=== PATIENT | female | born 1990 | race African-American/Black ===

== ENCOUNTER 2019-02-04 13:10 | Outpatient (CLI) | payer MEDICAID, SELFPAY ==
[2019-02-04 13:19] VITALS: BMI 23.3
[2019-02-04 13:49] LABS: ROM Internal Control Test YES-OK TO RESULT pt. (Internal QC)
[2019-02-04 13:51] LABS: ROM Patient Test POSITIVE (Negative)
[2019-02-04] MEDS: Lactated Ringers 500 ML 999 ML IV (14:00)
[2019-02-04] MEDS: Magnesium Sulfate 4gm/100mL 4 GM/100 ML IV.SOLN. IV ×2 (14:11→14:30)
[2019-02-04] MEDS: Betamethasone/Betamethasone 30 MG/5 ML Vial 12 MG IM (14:19)
[2019-02-04 14:30] VITALS: BP 117/68; PULSE 95; RESP 15; O2SAT 98
--- NOTE | 2019-02-04 14:33 | OB.TRI.HP_ITS ---
History of Present Illness Date of Service: 02/04/19 Was patient seen by the physician?: Yes Reason For Visit: R/O RUPTURED MEMBRANE Date of Service: 02/04/19 Final CORINA: 04/16/19 Final CORINA Source: US >20 weeks Gestational age: 29 Weeks and 6 Days History of Present Illness: 28yo @ 29.6 wks di/di twins with SROM, clear fluid. pt reports occasional contractions. Good Fm. no vaginal bleeding. 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 FLAKEBOARD: Normal external genitalia Estimated gestational size: Appropriate for gestational size Presentation: Cephalic Cervix Dilation (cm): 4 Station: -1 Effacement (%): 90 NST - FHR Rate Baby A Baseline: 120 Variability:: Moderate Accelerations:: 15 x 15 Decelerations:: None NST Reactive:: Yes FHR Category:: Category I Uterine Activity:: irregular - FHR Rate Baby B Baseline: 130 Variability:: Moderate Accelerations:: 15 x 15 Decelerations:: None NST Reactive:: Yes FHR Category:: Category I Uterine Activity:: irregular Impression/Plan 28yo @ 29.6 wks, Di/Di twins- SROM 1) Magnesium sulfate started 6gm loading then 2gm/hr 2) 12mg Celestone 3) spoke to L&D Dmitriy briggs and Barrett Joy- Transport patient 4) Bedside ultrasound- Baby A vertex 5) Pt counseled on transport- stable not in active labor at this time.
[2019-02-04 14:38] VITALS: BP 124/77; PULSE 98; RESP 15; O2SAT 97
[2019-02-04] MEDS: Magnesium Sulfate 20 GM/500 ML BAG IV (14:38)
[2019-02-04 14:53] VITALS: BP 117/78; PULSE 87; RESP 16; O2SAT 99
--- NOTE | 2019-02-04 15:00 | NURSING ---
see qs for all vital signs; not all were manually transfered into [facility]
== END 2019-02-04 15:10 | disposition short-term general hospital (02) ==
LOC: WPOUT 13:18 → WP 13:18
PROVIDERS: Referring Provider Advanced Practice Midwife; Visit Provider Advanced Practice Midwife
DX: O42.913 Preterm premature rupture of membranes, unspecified as to length of time between rupture and onset of labor, third trimester (principal); O30.043 Twin pregnancy, dichorionic/diamniotic, third trimester; Z3A.29 29 weeks gestation of pregnancy
CPT/HCPCS: 96365; 96368; 59025; 59050; 76815; 84112; 96372; 99218; J7120; G0378; J0702

== ENCOUNTER 2022-07-21 20:48 | Emergency (ER) | payer MEDICAID, SELFPAY ==
[2022-07-21 20:49] VITALS: BP 121/93; PULSE 97; RESP 15; TEMP 36.8; O2SAT 99; BMI 28.6
--- NOTE | 2022-07-21 21:08 | ED.VIS.DENTA ---
HPI History of Present Illness Chief Complaint: Dental Detail of Chief Complaint: Dental pain Informant: patient Narrative Narrative: Patient presents with dental pain that she has had for several days. This morning she noticed increased swelling to left upper molar area. Patient states that she called and made a dental appointment. She had fever up to 101 off-and-on for the last several days. Patient states that she has a broken and carried left upper molar. PFSH PFSH Home Medications vit no.95-ferrous fumarate 28 mg-folic acid 800 mcg tablet () 1 ea PO 04/12/16 [History Last Taken 04/11/16 20:00] docusate sodium 100 mg capsule 100 mg PO DAILY 02/04/19 [History Last Taken 02/03/19 11:00] famotidine 20 mg tablet 20 mg PO BID 02/04/19 [History Last Taken 02/03/19 22:00] ferrous sulfate 325 mg (65 mg iron) tablet 325 mg PO BID 02/04/19 [History Last Taken 02/03/19 21:00] vits,calcium no.78-iron fumarate-folic acid 29 mg-1 mg tablet 1 tab PO DAILY 02/04/19 [History Last Taken 02/03/19 11:00] clindamycin HCl 300 mg capsule (Cleocin HCl) 300 mg PO Q6H #40 CAPSULES 07/21/22 [Rx Last Taken Unknown] clindamycin HCl 300 mg capsule (Cleocin HCl) 300 mg PO Q6H #40 CAPSULES 07/21/22 [Rx Last Taken Unknown] hydrocodone-acetaminophen 5-325mg 5mg-325mg 1 tab PO Q4H PRN PRN Pain 2 days #10 TABLETS 07/21/22 [Rx Last Taken Unknown] hydrocodone-acetaminophen 5-325mg 5mg-325mg 1 tab PO Q4H PRN PRN Pain 2 days #10 TABLETS 07/21/22 [Rx Last Taken Unknown] Allergy/AdvReac Type Severity Reaction Status Date / Time codeine Allergy Rash Verified 07/21/22 20:52 latex Allergy Swelling Verified 07/21/22 20:52 Penicillins Allergy Unknown Verified 07/21/22 20:52 Social History Smoking Status: Current every day smoker ROS ROS ED Review of Systems ROS Unobtainable: other Constitutional Constitutional ED: Reports lethargy; Denies chills, fever(s), sweats or weight loss Eyes Eyes: Denies blurry vision, change in vision or diplopia ENT ENT ED: Reports other Details: Dental pain and swelling ; Denies rhinorrhea or sore throat Cardiovascular Cardiovascular: Denies chest pain, orthopnea or racing heartbeat Respiratory/Chest Respiratory/Chest: Denies cough, dyspnea, dyspnea on exertion, orthopnea or sputum Gastrointestinal Gastrointestinal: Denies abdominal pain, diarrhea, nausea or vomiting Genitourinary Genitourinary ED: Denies dysuria, hematuria or urinary frequency Musculoskeletal Musculoskeletal: Denies arthralgias, back pain, myalgias or neck pain Integumentary Denies abscess, Abrasions or rash Neurologic Neurologic: Denies headache(s) or weakness Psychiatric Psychiatric: Denies anxiety, depression or suicidal thoughts Endocrine Endocrinology: Denies polydipsia, polyphagia or polyuria Hematologic/Lymphatic Hematologic/Lymphatic: Denies easy bleeding, easy bruising or lymphadenopathy Allergic/Immunologic Allergic/Immunologic ED: Denies mouth swelling, tongue swelling or urticaria EXAM Physical Exam Const Vital Signs: 07/21/22 20:49 Temperature 98.2 F Temperature Source Temporal Pulse Rate 97 Respiratory Rate 15 Blood Pressure 121/93 H Blood Pressure Mean 102 Pulse Ox 99 Oxygen Delivery Method Room Air Positive well nourished and well developed General Appearance ED: well developed and NAD HEENT Reports TM's clear and moist mucous membranes HEENT Narrative: Dentition-patient has a broken and carried tooth #15. Gingiva distal to it is erythematous and has a soft tissue fleshy mass is pointing and fluctuant consistent with an abscess. There is no facial erythema or cellulitis. There is no trismus on exam. normocephalic and atraumatic; Negative for trauma or tenderness Tympanic Membrane ED: Yes TM's clear Eyes PERRL and EOMs intact bilaterally General Eye ED: Negative for pale conjunctiva or scleral icterus Neck no lymphadenopathy, supple and no JVD General: Negative for tenderness Chest Wall inspection of chest normal and palpation of chest normal Chest: Negative for tenderness Resp normal respiratory effort and clear to auscultation bilaterally Effort and Inspection: Negative for respiratory distress or pain with movement Auscultation: Negative for rhonchi, wheezes or diminished lung sounds Cardio regular rate, regular rhythm, S1 normal heart sound, S2 normal heart sound and no murmurs Peripheral Pulses: pulses 2+ throughout GI normal to inspection, nondistended, normoactive bowel sounds, soft to palpation, non-tender, non-distended and no masses Back/Spine no CVA tenderness and no thoracic nor lumbar tenderness Extremity normal to inspection General Extremety ED: Negative for edema General Extremity: Negative for edema Neuro oriented x3, CN's II-XII intact bilaterally, no sensory deficits noted and gait normal Sensorium / Orientation: awake, alert, oriented to person, oriented to place and oriented to time Motor Exam: strength 5/5 throughout and strength abnormal Psych mental status grossly normal Skin no rashes or lesions noted and no wounds MDM MDM MDM Narrative Medical decision making narrative: Patient presents with dental pain and a dental abscess. I recommended incision and drainage of said abscess. Patient in agreement. Used a 18-gauge needle to incise and drain the abscess. Large amount of free-flowing purulent debris was expressed from the abscess. Patient was able to rinse and spit the debris from her mouth. Patient will be started on clindamycin and given first dose in the emergency department as she has a penicillin allergy. Patient will be given a prescription for dennys [place] for pain. She is advised to follow-up with her dentist at the earliest possible time. Discharge Plan Triage Chief Complaint: Dental ED Provider: Basia Nunez Dx/Rx/DC Orders Clinical Impression: Dental abscess Instructions: ED Dental Abscess Prescriptions: New clindamycin HCl [Cleocin HCl] 300 mg capsule 300 mg PO Q6H Qty: 40 0RF hydrocodone-acetaminophen [hydrocodone-acetaminophen] 5-325 mg tablet 1 tab PO Q4H PRN PRN (Reason: Pain) 2 Days Qty: 10 0RF clindamycin HCl [Cleocin HCl] 300 mg capsule 300 mg PO Q6H Qty: 40 0RF hydrocodone-acetaminophen [hydrocodone-acetaminophen] 5-325 mg tablet 1 tab PO Q4H PRN PRN (Reason: Pain) 2 Days Qty: 10 0RF No Action PNV cmb#95-ferrous fumarate-FA [] 1 EACH tablet 1 ea PO famotidine 20 MG tablet 20 mg PO BID ferrous sulfate 325 MG tablet 325 mg PO BID docusate sodium 100 MG capsule 100 mg PO DAILY vit,[id number] 1 TABLET tablet 1 tab PO DAILY Primary Care Provider: Care Physician,No Primary Referrals: Care Physician,No Primary [Primary Care Provider] - Activity Restrictions/Additional Instructions: See your dentist at earliest possible time. Disposition Disposition: Home, Self Care
[2022-07-21] MEDS: Clindamycin HCl 150 MG Capsule 300 MG PO (21:18)
== END 2022-07-21 21:39 | disposition home or self-care (01) ==
PROVIDERS: Emergency Provider Emergency Medicine; Visit Provider Emergency Medicine
DX: K04.7 Periapical abscess without sinus (principal); R50.9 Fever, unspecified; F17.200 Nicotine dependence, unspecified, uncomplicated
CPT/HCPCS: 41800; 99282

== ENCOUNTER 2022-08-25 15:18 | Emergency (ER) | payer MEDICAID, SELFPAY ==
[2022-08-25 15:19] VITALS: BP 120/86; PULSE 93; RESP 16; TEMP 37; O2SAT 98; BMI 28.5
--- NOTE | 2022-08-25 15:34 | EDS_ITS ---
HPI History of Present Illness Chief Complaint: Other, Pain/Inj Narrative Narrative: 32-year-old female with nasal bone swelling. She states that her child hit her in the nose with the head. Patient did have some bleeding slightly initially but this is resolved. She is not having trouble breathing. She states her eyes did water. She did not take anything for pain. She states she supposed to go to work. Prior to this she was feeling well. [facility] Medical History No acute medical problems Home Medications vit no.95-ferrous fumarate 28 mg-folic acid 800 mcg tablet () 1 ea PO 04/12/16 [History Last Taken 04/11/16 20:00] docusate sodium 100 mg capsule 100 mg PO DAILY 02/04/19 [History Last Taken 02/03/19 11:00] famotidine 20 mg tablet 20 mg PO BID 02/04/19 [History Last Taken 02/03/19 22:00] ferrous sulfate 325 mg (65 mg iron) tablet 325 mg PO BID 02/04/19 [History Last Taken 02/03/19 21:00] vits,calcium no.78-iron fumarate-folic acid 29 mg-1 mg tablet 1 tab PO DAILY 02/04/19 [History Last Taken 02/03/19 11:00] clindamycin HCl 300 mg capsule (Cleocin HCl) 300 mg PO Q6H #40 CAPSULES 07/21/22 [Rx Last Taken Unknown] clindamycin HCl 300 mg capsule (Cleocin HCl) 300 mg PO Q6H #40 CAPSULES 07/21/22 [Rx Last Taken Unknown] hydrocodone-acetaminophen 5-325mg 5mg-325mg 1 tab PO Q4H PRN PRN Pain 2 days #10 TABLETS 07/21/22 [Rx Last Taken Unknown] hydrocodone-acetaminophen 5-325mg 5mg-325mg 1 tab PO Q4H PRN PRN Pain 2 days #10 TABLETS 07/21/22 [Rx Last Taken Unknown] Allergy/AdvReac Type Severity Reaction Status Date / Time Penicillins Allergy Severe Hives Verified 08/25/22 15:19 codeine Allergy Rash Verified 07/21/22 20:52 latex Allergy Swelling Verified 07/21/22 20:52 Social History Smoking Status: Current every day smoker tobacco type: cigarettes ROS ROS ED Constitutional Constitutional ED: Denies chills, fever(s) or sweats Eyes Eyes: Denies blurry vision or change in vision ENT ENT ED: Reports other Details: Nasal bone pain and swelling. Epistaxis resolved ; Denies ear pain or sore throat Cardiovascular Cardiovascular: Denies chest pain, palpitations or racing heartbeat Respiratory/Chest Respiratory/Chest: Denies cough, dyspnea or sputum Gastrointestinal Gastrointestinal: Denies abdominal pain, constipation, diarrhea, nausea or vomiting Genitourinary Genitourinary ED: Denies dysuria, hematuria or urinary frequency Musculoskeletal Musculoskeletal: Denies arthralgias, myalgias or neck pain Integumentary Denies abscess, Abrasions or rash Neurologic Neurologic: Denies headache(s), paresthesias or weakness Psychiatric Psychiatric: Denies anxiety, depression, suicidal ideation or suicidal thoughts Endocrine Endocrinology: Denies polydipsia or polyuria EXAM Physical Exam Const Vital Signs: 08/25/22 15:19 Temperature 98.6 F Temperature Source Temporal Pulse Rate 93 Respiratory Rate 16 Blood Pressure 120/86 H Blood Pressure Mean 97 Pulse Ox 98 Oxygen Delivery Method Room Air Positive well nourished General Appearance ED: NAD HEENT HEENT Narrative: Nasal bone swelling noted on examination. Nasal septum appears midline. Nares are patent. No nasal septal hematoma. Eyes PERRL and EOMs intact bilaterally Neck full ROM Chest Wall inspection of chest normal Resp normal respiratory effort Cardio regular rhythm Neuro oriented x3 and CN's II-XII intact bilaterally Sensorium / Orientation: alert Motor Exam: strength 5/5 throughout Psych mental status grossly normal Skin no rashes or lesions noted MDM MDM MDM Narrative Medical decision making narrative: Patient with nasal bones. Septum appears midline. Nares patent. No lacerations. She is given ibuprofen 600 mg and I will obtain nasal bone x-rays. Differential includes nasal bone contusion or nasal bone fracture. X-ray of the nasal bones shows no acute fracture my interpretation. Radiologist interprets this and agrees. Patient can follow-up with ENT. Return precautions discussed. I recommended ice, ibuprofen, Tylenol. She knowledge understanding. Discharge stable condition. Impression: 1. Nasal bone contusion Radiography Diagnostic Testing: Clinical Impression(s) from Imaging Studies Nasal Bones X-Ray 08/25/22 15:43 IMPRESSION: Negative. Electronically Signed: Shant Jimenez MD at 17:01 EDT , Discharge Plan Triage Chief Complaint: Other, Pain/Inj ED Provider: [facility] Dx/Rx/DC Orders Instructions: ED Nasal Contusion Prescriptions: No Action PNV cmb#95-ferrous fumarate-FA [] 1 EACH tablet 1 ea PO Hold Instructions: Pt has been DC'd famotidine 20 MG tablet 20 mg PO BID Hold Instructions: Pt has been DC'd ferrous sulfate 325 MG tablet 325 mg PO BID Hold Instructions: Pt has been DC'd docusate sodium 100 MG capsule 100 mg PO DAILY Hold Instructions: Pt has been DC'd vit,[id number] 1 TABLET tablet 1 tab PO DAILY Hold Instructions: Pt has been DC'd clindamycin HCl [Cleocin HCl] 300 mg capsule 300 mg PO Q6H Qty: 40 0RF Hold Instructions: Pt has been DC'd hydrocodone-acetaminophen [hydrocodone-acetaminophen] 5-325 mg tablet 1 tab PO Q4H PRN PRN (Reason: Pain) 2 Days Qty: 10 0RF Hold Instructions: Pt has been DC'd clindamycin HCl [Cleocin HCl] 300 mg capsule 300 mg PO Q6H Qty: 40 0RF Hold Instructions: Pt has been DC'd hydrocodone-acetaminophen [hydrocodone-acetaminophen] 5-325 mg tablet 1 tab PO Q4H PRN PRN (Reason: Pain) 2 Days Qty: 10 0RF Hold Instructions: Pt has been DC'd Primary Care Provider: Care Physician,No Primary Referrals: Shant Colon MD [Med Staff - Active Staff] - 3-5 Days Care Physician,No Primary [Primary Care Provider] - Disposition Disposition: Home, Self Care
[2022-08-25] MEDS: Ibuprofen 600 MG Tablet PO (15:38)
--- NOTE | 2022-08-25 15:43 | RAD_ITS ---
INDICATION: pain EXAMINATION/TECHNIQUE: X-RAY - XR Nasal Bones Min 3 Views COMPARISON: No relevant prior comparison study available FINDINGS: SOFT TISSUES: No soft tissue swelling or gas. No radiopaque foreign body. BONES/TMJs: No fracture or subluxation. No sclerotic or destructive changes observed. RAD/Nasal Bones min 3 Views IMPRESSION: Negative. Electronically Signed: Shant Jimenez MD at 17:01 EDT ,
== END 2022-08-25 17:46 | disposition home or self-care (01) ==
PROVIDERS: Emergency Provider Student in an Organized Health Care Education/Training Program; Visit Provider Student in an Organized Health Care Education/Training Program
DX: S00.33XA Contusion of nose, initial encounter (principal); F17.210 Nicotine dependence, cigarettes, uncomplicated; W50.0XXA Accidental hit or strike by another person, initial encounter
CPT/HCPCS: 70160; 99282

== ENCOUNTER 2022-10-15 16:35 | Emergency (ER) | payer MEDICAID, SELFPAY ==
[2022-10-15 16:36] VITALS: BP 138/89; PULSE 105; RESP 16; TEMP 36.4; O2SAT 99; BMI 27.4
--- NOTE | 2022-10-15 18:34 | EX.ED.DYSGE1 ---
HPI History of Present Illness Chief Complaint: Lower Extremity Injury Narrative Narrative: Patient presents with right leg pain radiating to her toes, she had some back pain a few days ago the back pain seems to have improved but she now has posterior back pain, she has sharp stabbing pain when she lifts her leg. No bowel or bladder compromise. No urinary retention symptoms. No saddle anesthesia. No loss of strength or sensation. [facility] Medical History (Updated 10/15/22 @ 18:[address] Boone Fleming MD) No acute medical problems Home Medications vit no.95-ferrous fumarate 28 mg-folic acid 800 mcg tablet () 1 ea PO 04/12/16 [History Last Taken 04/11/16 20:00] docusate sodium 100 mg capsule 100 mg PO DAILY 02/04/19 [History Last Taken 02/03/19 11:00] famotidine 20 mg tablet 20 mg PO BID 02/04/19 [History Last Taken 02/03/19 22:00] ferrous sulfate 325 mg (65 mg iron) tablet 325 mg PO BID 02/04/19 [History Last Taken 02/03/19 21:00] vits,calcium no.78-iron fumarate-folic acid 29 mg-1 mg tablet 1 tab PO DAILY 02/04/19 [History Last Taken 02/03/19 11:00] clindamycin HCl 300 mg capsule (Cleocin HCl) 300 mg PO Q6H #40 CAPSULES 07/21/22 [Rx Last Taken Unknown] clindamycin HCl 300 mg capsule (Cleocin HCl) 300 mg PO Q6H #40 CAPSULES 07/21/22 [Rx Last Taken Unknown] hydrocodone-acetaminophen 5-325mg 5mg-325mg 1 tab PO Q4H PRN PRN Pain 2 days #10 TABLETS 07/21/22 [Rx Last Taken Unknown] hydrocodone-acetaminophen 5-325mg 5mg-325mg 1 tab PO Q4H PRN PRN Pain 2 days #10 TABLETS 07/21/22 [Rx Last Taken Unknown] naproxen 500 mg tablet (Naprosyn) 500 mg PO BID PRN pain #20 tabs 10/15/22 [Rx Last Taken Unknown] prednisone 20 mg tablet 60 mg (3 x 20 mg) PO DAILY #15 TABLETS 10/15/22 [Rx Last Taken Unknown] Allergy/AdvReac Type Severity Reaction Status Date / Time Penicillins Allergy Severe Hives Verified 10/15/22 16:37 codeine Allergy Rash Verified 10/15/22 16:37 latex Allergy Swelling Verified 10/15/22 16:37 Social History Smoking Status: Current every day smoker tobacco type: cigarettes ROS ROS ED ROS Narrative Past medical history: Reviewed Medications: Reviewed Social history: Noncontributory Review of systems: All systems negative except as indicated General: No fever Cardiovascular: No chest pain Respiratory: No shortness of breath or cough Gastrointestinal: No abdominal pain, nausea vomiting or diarrhea Genitourinary: No dysuria Musculoskeletal: As in HPI Skin: No rash Neurological: No sensory or any, weakness. EXAM Physical Exam Narrative Exam Narrative: Vitals reviewed General: Patient appears in some discomfort HEENT: Moist mucous membranes Neck: Nontender Cardiovascular normal heart rate Respiratory: No respiratory difficulty speaking in full sentences Abdomen: Soft and nontender, there is no suprapubic mass or pain Back: There is some tenderness over the paraspinal region lower and buttock region. Both on the right Extremities: Moves all extremities without joint pain or signs of trauma Neurological: There is normal plantar flexion and dorsiflexion of both feet and great toes. Patellar and Achilles reflexes are normal. Normal strength and sensation. Positive straight leg test on the right Skin: No rash Psychiatric: Slightly anxious. Const Vital Signs: 10/15/22 16:36 Temperature 97.6 F L Temperature Source Temporal Pulse Rate 105 H Respiratory Rate 16 Blood Pressure 138/89 H Blood Pressure Mean 105 Pulse Ox 99 Oxygen Delivery Method Room Air MDM MDM MDM Narrative Medical decision making narrative: Patient does not have any red flags. She has no fevers am not worried about discitis osteomyelitis. She has no red flags for cauda equina therefore I am not worried about cauda equina. She does not meet criteria for MRI. She did not fall therefore an x-ray is not needed. Since she has radicular symptoms and sciatica will treat with steroids. Otherwise patient be discharged with symptomatic treatment including NSAIDs and she can follow-up with her PCP. If anything changes she is to return to Discharge Plan Triage Chief Complaint: Lower Extremity Injury ED Provider: Boone Fleming Dx/Rx/DC Orders Clinical Impression: Sciatica, Back pain Instructions: ED Sciatica Prescriptions: New prednisone 20 mg tablet 60 mg PO DAILY Qty: 15 0RF naproxen [Naprosyn] 500 mg tablet 500 mg PO BID PRN (Reason: pain) Qty: 20 0RF No Action PNV cmb#95-ferrous fumarate-FA [] 1 EACH tablet 1 ea PO Hold Instructions: Pt has been DC'd famotidine 20 MG tablet 20 mg PO BID Hold Instructions: Pt has been DC'd ferrous sulfate 325 MG tablet 325 mg PO BID Hold Instructions: Pt has been DC'd docusate sodium 100 MG capsule 100 mg PO DAILY Hold Instructions: Pt has been DC'd vit,[id number] 1 TABLET tablet 1 tab PO DAILY Hold Instructions: Pt has been DC'd clindamycin HCl [Cleocin HCl] 300 mg capsule 300 mg PO Q6H Qty: 40 0RF Hold Instructions: Pt has been DC'd hydrocodone-acetaminophen [hydrocodone-acetaminophen] 5-325 mg tablet 1 tab PO Q4H PRN PRN (Reason: Pain) 2 Days Qty: 10 0RF Hold Instructions: Pt has been DC'd clindamycin HCl [Cleocin HCl] 300 mg capsule 300 mg PO Q6H Qty: 40 0RF Hold Instructions: Pt has been DC'd hydrocodone-acetaminophen [hydrocodone-acetaminophen] 5-325 mg tablet 1 tab PO Q4H PRN PRN (Reason: Pain) 2 Days Qty: 10 0RF Hold Instructions: Pt has been DC'd Primary Care Provider: Care Physician,No Primary Referrals: Care Physician,No Primary [Primary Care Provider] - 3-5 Days Disposition Disposition: Home, Self Care
== END 2022-10-15 18:52 | disposition home or self-care (01) ==
LOC: ED 18:45
PROVIDERS: Emergency Provider Emergency Medicine; Visit Provider Emergency Medicine
DX: M54.30 Sciatica, unspecified side (principal); F17.210 Nicotine dependence, cigarettes, uncomplicated; M79.604 Pain in right leg; Z79.52 Long term (current) use of systemic steroids
CPT/HCPCS: 99282

== ENCOUNTER 2023-01-04 17:19 | Emergency (ER) | payer SELFPAY ==
[2023-01-04 17:20] VITALS: BP 133/88; PULSE 99; RESP 18; TEMP 36.7; O2SAT 98; BMI 27.4
--- NOTE | 2023-01-04 18:06 | EDS_ITS ---
HPI History of Present Illness Chief Complaint: Back Narrative Narrative: 32-year-old female presenting with right lower back pain. Patient states the onset of this was last night. Patient states that she has had this in the past. She denies any direct trauma. Patient states she works at [employer] and was lifting some heavy objects in the cooler last evening. She denies feeling a pop or pull. She states that when she arrived home her back was hurting her. She took some prednisone which was left over. She had leftover 20 mg tablets and took 2 yesterday and 2 today. She states her pain is not significantly improved. She is having trouble getting around secondary to pain. Denies any urinary complaints or vaginal complaints. Denies systemic symptoms. Patient denies loss of bladder or bowel control. She does note that she urinated on herself a couple of times, but states this is because she is too slow to get to the restroom and not due to lack of control. Patient was able to get in and out of the car to come to the emergency room. She is ambulatory [facility] Medical History No acute medical problems Home Medications vit no.95-ferrous fumarate 28 mg-folic acid 800 mcg tablet () 1 ea PO 04/12/16 [History Last Taken 04/11/16 20:00] docusate sodium 100 mg capsule 100 mg PO DAILY 02/04/19 [History Last Taken 02/03/19 11:00] famotidine 20 mg tablet 20 mg PO BID 02/04/19 [History Last Taken 02/03/19 22:00] ferrous sulfate 325 mg (65 mg iron) tablet 325 mg PO BID 02/04/19 [History Last Taken 02/03/19 21:00] vits,calcium no.78-iron fumarate-folic acid 29 mg-1 mg tablet 1 tab PO DAILY 02/04/19 [History Last Taken 02/03/19 11:00] clindamycin HCl 300 mg capsule (Cleocin HCl) 300 mg PO Q6H #40 CAPSULES 07/21/22 [Rx Last Taken Unknown] clindamycin HCl 300 mg capsule (Cleocin HCl) 300 mg PO Q6H #40 CAPSULES 07/21/22 [Rx Last Taken Unknown] hydrocodone-acetaminophen 5-325mg 5mg-325mg 1 tab PO Q4H PRN PRN Pain 2 days #10 TABLETS 07/21/22 [Rx Last Taken Unknown] hydrocodone-acetaminophen 5-325mg 5mg-325mg 1 tab PO Q4H PRN PRN Pain 2 days #10 TABLETS 07/21/22 [Rx Last Taken Unknown] naproxen 500 mg tablet (Naprosyn) 500 mg PO BID PRN pain #20 tabs 10/15/22 [Rx Last Taken Unknown] prednisone 20 mg tablet 60 mg (3 x 20 mg) PO DAILY #15 TABLETS 10/15/22 [Rx Last Taken Unknown] lidocaine 5 % topical patch (Lidoderm) 1 patch topical DAILY PRN pain #15 ea 01/04/23 [Rx Last Taken Unknown] naproxen 500 mg tablet (Naprosyn) 500 mg PO BID PRN pain #20 tabs 01/04/23 [Rx Last Taken Unknown] tizanidine 4 mg capsule 4 mg PO Q8H PRN muscle spasticity #20 caps 01/04/23 [Rx Last Taken Unknown] Allergy/AdvReac Type Severity Reaction Status Date / Time Penicillins Allergy Severe Hives Verified 01/04/23 17:20 codeine Allergy Rash Verified 01/04/23 17:20 latex Allergy Swelling Verified 01/04/23 17:20 Social History Smoking Status: Current every day smoker tobacco type: cigarettes ROS ROS ED Constitutional Constitutional ED: Denies chills, fever(s) or sweats Eyes Eyes: Denies blurry vision or change in vision ENT ENT ED: Denies ear pain or sore throat Cardiovascular Cardiovascular: Denies chest pain, palpitations or racing heartbeat Respiratory/Chest Respiratory/Chest: Denies cough, dyspnea or sputum Gastrointestinal Gastrointestinal: Denies abdominal pain, constipation, diarrhea, nausea or vomiting Genitourinary Genitourinary ED: Denies dysuria, hematuria or urinary frequency Musculoskeletal Musculoskeletal: Reports back pain; Denies arthralgias, myalgias or neck pain Integumentary Denies abscess, Abrasions or rash Neurologic Neurologic: Denies headache(s), paresthesias or weakness Psychiatric Psychiatric: Denies anxiety, depression, suicidal ideation or suicidal thoughts Endocrine Endocrinology: Denies polydipsia or polyuria EXAM Physical Exam Const Vital Signs: 01/04/23 17:20 Temperature 98.1 F Temperature Source Temporal Pulse Rate 99 Respiratory Rate 18 Blood Pressure 133/88 H Blood Pressure Mean 103 Pulse Ox 98 Oxygen Delivery Method Room Air Positive well nourished General Appearance ED: NAD; Negative for pallor HEENT Reports moist mucous membranes Eyes PERRL and EOMs intact bilaterally Resp normal respiratory effort Cardio regular rate and regular rhythm Back/Spine Back/Spine Narrative: Tenderness to palpation right lumbar paraspinal musculature. No midline spinal tenderness, deformity, step-off. Extremity normal to inspection Neuro oriented x3 Sensorium / Orientation: alert Motor Exam: strength 5/5 throughout Psych mental status grossly normal Skin no rashes or lesions noted and no wounds General Skin Exam: Negative for jaundice or pallor MDM MDM MDM Narrative Medical decision making narrative: Patient presented with back pain. Patient denies trauma. She states she was lifting heavy things in the cooler at [employer] last night where she works. She took 2 doses of prednisone 40 mg. On examination she is tender in the left lumbar paraspinal musculature. No midline spinal deformity, step-off. No direct trauma. Normally she has any x-rays. She is medicated with Norflex and Toradol. Will reevaluate. Patient at 6:40 PM the patient is feeling much better. She states the pressure is reduced in her back. She is sitting upright on the bed. Patient will be on a couple days of work. She is given a prescription for muscle relaxers and anti-inflammatories. Return precautions discussed. Impression: 1. Lumbar strain Discharge Plan Triage Chief Complaint: Back ED Provider: [facility] Dx/Rx/DC Orders Instructions: ED Back Spasm, No Trauma Prescriptions: New tizanidine 4 mg capsule 4 mg PO Q8H PRN (Reason: muscle spasticity) Qty: 20 0RF naproxen [Naprosyn] 500 mg tablet 500 mg PO BID PRN (Reason: pain) Qty: 20 0RF lidocaine [Lidoderm] 5 % adhesive patch,medicated 1 patch topical DAILY PRN (Reason: pain) Qty: 15 0RF Rx Instructions: leave on most painful area for up to 12 hrs No Action PNV cmb#95-ferrous fumarate-FA [] 1 EACH tablet 1 ea PO Hold Instructions: Pt has been DC'd famotidine 20 MG tablet 20 mg PO BID Hold Instructions: Pt has been DC'd ferrous sulfate 325 MG tablet 325 mg PO BID Hold Instructions: Pt has been DC'd docusate sodium 100 MG capsule 100 mg PO DAILY Hold Instructions: Pt has been DC'd vit,[id number] 1 TABLET tablet 1 tab PO DAILY Hold Instructions: Pt has been DC'd clindamycin HCl [Cleocin HCl] 300 mg capsule 300 mg PO Q6H Qty: 40 0RF Hold Instructions: Pt has been DC'd hydrocodone-acetaminophen [hydrocodone-acetaminophen] 5-325 mg tablet 1 tab PO Q4H PRN PRN (Reason: Pain) 2 Days Qty: 10 0RF Hold Instructions: Pt has been DC'd clindamycin HCl [Cleocin HCl] 300 mg capsule 300 mg PO Q6H Qty: 40 0RF Hold Instructions: Pt has been DC'd hydrocodone-acetaminophen [hydrocodone-acetaminophen] 5-325 mg tablet 1 tab PO Q4H PRN PRN (Reason: Pain) 2 Days Qty: 10 0RF Hold Instructions: Pt has been DC'd prednisone 20 mg tablet 60 mg PO DAILY Qty: 15 0RF naproxen [Naprosyn] 500 mg tablet 500 mg PO BID PRN (Reason: pain) Qty: 20 0RF Primary Care Provider: Care Physician,No Primary Referrals: [facility] [Outside] - 3-5 Days Care Physician,No Primary [Primary Care Provider] - Disposition Disposition: Home, Self Care
[2023-01-04] MEDS: Ketorolac 15 MG/ML Vial IM (18:16)
[2023-01-04] MEDS: Orphenadrine 60 MG/2 ML Ampul IM (18:16)
[2023-01-04 18:45] VITALS: BP 116/89; PULSE 67; RESP 18; O2SAT 97
== END 2023-01-04 18:52 | disposition home or self-care (01) ==
PROVIDERS: Emergency Provider Student in an Organized Health Care Education/Training Program; Visit Provider Student in an Organized Health Care Education/Training Program
DX: S39.012A Strain of muscle, fascia and tendon of lower back, initial encounter (principal); F17.210 Nicotine dependence, cigarettes, uncomplicated; X50.0XXA Overexertion from strenuous movement or load, initial encounter; Y99.0 Civilian activity done for income or pay
CPT/HCPCS: 96372; 99282

== ENCOUNTER 2023-10-20 17:26 | Emergency (ER) | payer SELFPAY ==
[2023-10-20 17:27] VITALS: BP 118/94; PULSE 82; RESP 16; TEMP 36.3; O2SAT 99; BMI 24.7
== END 2023-10-20 18:00 | disposition left against medical advice (07) ==
LOC: ED 18:39
DX: Z53.21 Procedure and treatment not carried out due to patient leaving prior to being seen by health care provider (principal)

== ENCOUNTER 2024-01-27 16:23 | Emergency (ER) | payer MEDICAID, SELFPAY ==
[2024-01-27 16:23] VITALS: BP 130/96; PULSE 109; RESP 20; TEMP 37.2; O2SAT 97; BMI 26.4
--- NOTE | 2024-01-27 17:21 | EDS_ITS ---
HPI History of Present Illness Chief Complaint: Shortness of Breath Informant: patient Onset/Context/Timing Onset: Weeks (1) Context: gradual Timing: Continuous Quality: Positive for Dyspnea on exertion Worsened by: Exertion Relieved by: Nothing Associated Symptoms cough, post nasal drip, ear pain, fever, sore throat, chills and green sputum; Negative for rhinorrhea, sweats, clear sputum, white sputum or yellow sputum Narrative Narrative: Patient presents with shortness of breath and cough that has been getting worse over the past week. Patient states she is coughing up some green and brown sputum. Patient admits to a fever of 101 at home. Patient also admits to some subjective chills. Patient admits to a sore throat and bilateral ear pain. Patient also admits to some pressure over the substernal area. Patient states her breathing is worse with any activity or exertion. Patient states nothing makes it better. Patient states did have 1 episode of nausea and vomiting. Patient also admits to some urinary frequency. Patient also admits to pressure over her maxillary sinuses. PE Risk Factors: Negative for Cancer, OCP + Smoking + > 35, Prior DVT or PE, Recent immobilization, Recent surgery or Recent travel [facility] Medical History No acute medical problems no medical history Home Medications ?Medication ?Instructions ?Recorded ?Last Taken ?Type vit no.95-ferrous 1 ea PO 04/12/16 04/11/16 20:00 History fumarate 28 mg-folic acid 800 mcg tablet () docusate sodium 100 mg capsule 100 mg PO DAILY 02/04/19 02/03/19 11:00 History famotidine 20 mg tablet 20 mg PO BID 02/04/19 02/03/19 22:00 History ferrous sulfate 325 mg (65 mg 325 mg PO BID 02/04/19 02/03/19 21:00 History iron) tablet vits,calcium no.78-iron 1 tab PO DAILY 02/04/19 02/03/19 11:00 History fumarate-folic acid 29 mg-1 mg tablet clindamycin HCl 300 mg capsule 300 mg PO Q6H #40 CAPSULES 07/21/22 Unknown Rx (Cleocin HCl) clindamycin HCl 300 mg capsule 300 mg PO Q6H #40 CAPSULES 07/21/22 Unknown Rx (Cleocin HCl) hydrocodone-acetaminophen 5-325mg 1 tab PO Q4H PRN PRN Pain 2 days 07/21/22 Unknown Rx 5mg-325mg #10 TABLETS hydrocodone-acetaminophen 5-325mg 1 tab PO Q4H PRN PRN Pain 2 days 07/21/22 Unknown Rx 5mg-325mg #10 TABLETS naproxen 500 mg tablet (Naprosyn) 500 mg PO BID PRN pain #20 tabs 10/15/22 Unknown Rx prednisone 20 mg tablet 60 mg (3 x 20 mg) PO DAILY #15 10/15/22 Unknown Rx TABLETS lidocaine 5 % topical patch 1 patch topical DAILY PRN pain #15 01/04/23 Unknown Rx (Lidoderm) ea naproxen 500 mg tablet (Naprosyn) 500 mg PO BID PRN pain #20 tabs 01/04/23 Unknown Rx tizanidine 4 mg capsule 4 mg PO Q8H PRN muscle spasticity 01/04/23 Unknown Rx #20 caps azithromycin 250 mg tablet 250 mg PO DAILY #4 TABLETS 01/27/24 Unknown Rx Allergy/AdvReac Type Severity Reaction Status Date / Time Penicillins Allergy Severe Hives Verified 01/27/24 16:23 codeine Allergy Rash Verified 01/27/24 16:23 latex Allergy Swelling Verified 01/27/24 16:23 Surgical History no surgical history no surgical history Social History Smoking Status: Current every day smoker tobacco type: cigarettes ROS ROS ED Constitutional Constitutional ED: Reports chills and fever(s) Eyes Eyes: Denies blurry vision or change in vision ENT ENT ED: Reports ear pain and sore throat; Denies rhinorrhea Cardiovascular Cardiovascular: Reports chest pain; Denies palpitations Respiratory/Chest Respiratory/Chest: Reports cough and dyspnea Gastrointestinal Gastrointestinal: Reports nausea and vomiting Genitourinary Genitourinary ED: Reports urinary frequency; Denies dysuria or hematuria Musculoskeletal Musculoskeletal: Reports neck pain; Denies back pain Integumentary Denies abscess or rash Neurologic Neurologic: Reports headache(s); Denies weakness Allergic/Immunologic Allergic/Immunologic ED: Denies mouth swelling or urticaria EXAM Physical Exam Const Vital Signs: 01/27/24 16:23 01/27/24 17:39 01/27/24 17:50 Temperature 98.9 F Temperature Source Oral Pulse Rate 109 H 92 Respiratory Rate 20 H 16 Respiratory Effort Short of Breath Respiratory Depth Normal Respiratory Pattern Normal Blood Pressure 130/96 H Blood Pressure Mean 107 Pulse Ox 97 Oxygen Delivery Method Room Air 01/27/24 18:23 Temperature Temperature Source Pulse Rate Respiratory Rate Respiratory Effort Respiratory Depth Respiratory Pattern Blood Pressure 123/74 H Blood Pressure Mean 90 Pulse Ox 96 Oxygen Delivery Method Positive well nourished and well developed General Appearance ED: well developed and NAD HEENT Reports moist mucous membranes HEENT Narrative: There is mild tenderness to percussion of the maxillary sinuses bilaterally. Oropharynx is clear. Airway is patent. There is no exudate noted. There is no postnasal drainage noted. There is no erythema. Neck supple, no meningeal signs and no JVD Resp normal respiratory effort and clear to auscultation bilaterally Cardio regular rhythm Rate: tachycardic GI non-tender and non-distended Palpation: soft Extremity normal to inspection General Extremety ED: Negative for edema or tenderness General Extremity: Negative for edema Neuro oriented x3, CN's II-XII intact bilaterally and no sensory deficits noted Holden Coma Scale: document GCS findings Spontaneous Obeys Commands Oriented 15 Sensorium / Orientation: alert Speech: speech normal Motor Exam: strength 5/5 throughout Psych mental status grossly normal MDM MDM MDM Narrative Medical decision making narrative: Differential diagnosis includes bronchitis, pneumonia, sinusitis, upper resp iratory infection, viral illness, and reactive airway disease. Chest x-ray will be obtained to assess for pneumonia and bronchitis. Urinalysis will be obtained to assess for urinary tract infection and hematuria. Serum hCG will be obtained to assess for . CBC will be obtained to assess for leukocytosis and anemia. Basic metabolic profile will be obtained to assess for electrolyte abn ormality and renal function. Lab Data Attestation: I reviewed the patient's lab results. Lab results narrative: CBC was reviewed. There is a slight leukocytosis of 11.2. Remainder is within normal limits. Basic metabolic profile was reviewed and was within normal limits. Serum hCG was reviewed and was negative. Urinalysis was reviewed. Leukocyte esterase was 100. There were 0-5 white blood cells. There is a or 5 epithelial cells. There is 5-10 red blood cells. Labs: Laboratory Results - last 24 hr 01/27/24 01/27/24 16:23 17:52 WBC 11.2 H RBC 4.18 L Hgb 12.5 Hct 38.5 MCV 92.1 MCH 29.9 MCHC 32.5 RDW Std Deviation 43.2 RDW Coeff of Sravanthi 12.7 Plt Count 367 MPV 9.2 Immature Gran % (Auto) 0.400 Neut % (Auto) 66.7 Lymph % (Auto) 25.4 [place] % (Auto) 7.1 Eos % (Auto) 0.2 Baso % (Auto) 0.2 Absolute Neuts (auto) 7.5 Absolute Lymphs (auto) 2.84 Nucleated RBC % 0 Sodium 135 L Potassium 3.8 Chloride 105 Carbon Dioxide 26.0 Anion Gap 4 L BUN 10 Creatinine 0.79 Estim Creat Clear Calc 116.40 Est GFR (MDRD) Af Amer 108 Est GFR (MDRD) Non-Af 90 BUN/Creatinine Ratio 12.7 Glucose 87 Calcium 9.3 Serum , Qual NEGATIVE Urine Color Yellow Urine Clarity Sl. Cloudy Urine pH 6.0 Ur Specific [place] 1.020 Urine Protein 30 H Urine Glucose (UA) Normal Urine Ketones 5 H Urine Occult Blood 250 H Urine Nitrite Negative Urine Bilirubin 1 H Urine Urobilinogen 4 H Ur Leukocyte Esterase 100 H Urine RBC 5-10 SEEN Urine WBC 0-5 SEEN Ur Squamous Epith Cells 0-5 SEEN Urine Bacteria 2+ Urine Mucus 2+ Radiography Chest X-Ray - ED: 2 View, Read by ED Physician, Read by Radiologist, Right Infiltrate and Left Infiltrate Diagnostic Testing: Clinical Impression(s) from Imaging Studies Chest X-Ray 01/27/24 17:55 IMPRESSION: Mild left left upper and bilateral lower lobe infiltrates Electronically Signed: Toby Kelly MD at 18:24 EST Reading Location ID and State: [facility] / [place] Tel , Service support , PA and lateral chest x-ray was obtained. There are 2 views. On my independent interpretation, there are bilateral lower lobe infiltrates and a mild left upper lobe infiltrate. Bony thorax is normal. There is no cardiomegaly. Radiologist also interpreted the x-rays and agrees. Treatment and Re-Evaluation :: Smoking cessation was discussed. Patient was given a DuoNeb aerosol here. Patient was advised of her findings. Patient was given a dose of Zithromax here. Patient was given a prescription for Zithromax. Patient was instructed to follow-up with her primary care physician in 5 to 7 days. Patient understood and was agreeable with the plan. All questions were answered. Discharge Plan Triage Chief Complaint: Shortness of Breath ED Provider: Geovanni Whyte Dx/Rx/DC Orders Clinical Impression: Pneumonia, Tobacco use Instructions: ED Pneumonia (Adult) Prescriptions: New azithromycin 250 mg tablet 250 mg PO DAILY Qty: 4 0RF No Action PNV cmb#95-ferrous fumarate-FA [] 1 EACH tablet 1 ea PO famotidine 20 MG tablet 20 mg PO BID ferrous sulfate 325 MG tablet 325 mg PO BID docusate sodium 100 MG capsule 100 mg PO DAILY vit,[id number] 1 TABLET tablet 1 tab PO DAILY clindamycin HCl [Cleocin HCl] 300 mg capsule 300 mg PO Q6H Qty: 40 0RF hydrocodone-acetaminophen [hydrocodone-acetaminophen] 5-325 mg tablet 1 tab PO Q4H PRN PRN (Reason: Pain) 2 Days Qty: 10 0RF clindamycin HCl [Cleocin HCl] 300 mg capsule 300 mg PO Q6H Qty: 40 0RF hydrocodone-acetaminophen [hydrocodone-acetaminophen] 5-325 mg tablet 1 tab PO Q4H PRN PRN (Reason: Pain) 2 Days Qty: 10 0RF prednisone 20 mg tablet 60 mg PO DAILY Qty: 15 0RF naproxen [Naprosyn] 500 mg tablet 500 mg PO BID PRN (Reason: pain) Qty: 20 0RF tizanidine 4 mg capsule 4 mg PO Q8H PRN (Reason: muscle spasticity) Qty: 20 0RF naproxen [Naprosyn] 500 mg tablet 500 mg PO BID PRN (Reason: pain) Qty: 20 0RF lidocaine [Lidoderm] 5 % adhesive patch,medicated 1 patch topical DAILY PRN (Reason: pain) Qty: 15 0RF Rx Instructions: leave on most painful area for up to 12 hrs Primary Care Provider: Care Physician,No Primary Referrals: Augie Mills MD [Med Staff - [employer]] - 5-7 Days Care Physician,No Primary [Primary Care Provider] - Print Language: Luxembourger Disposition Disposition: Home, Self Care
[2024-01-27] MEDS: Ipratropium/Albuterol Sulfate 3 ML AMPUL.NEB INHALATION (17:37)
[2024-01-27 17:39] VITALS: PULSE 92; RESP 16
--- NOTE | 2024-01-27 17:55 | RAD_ITS ---
STUDY: X-RAY CHEST REASON FOR EXAM: Female, 33 years old. Cough TECHNIQUE: PA and lateral COMPARISON: None. FINDINGS: Mild bilateral lower lobe infiltrates. Mild infiltrate in the left upper lobe. There is no demonstrated pleural abnormality. Normal size heart. Normal mediastinum and jo ann. Normal visualized pulmonary arteries. Normal visualized aortic arch and descending thoracic aorta. Normal visualized thoracic spine. Normal visualized ribs, clavicles, and shoulders. There is no demonstrated abnormality of the visualized soft tissue structures of the upper abdomen. RAD/Chest PA and Lateral IMPRESSION: Mild left left upper and bilateral lower lobe infiltrates Electronically Signed: Toby Kelly MD at 18:24 EST ,
[2024-01-27 17:57] LABS: Absolute Lymphocyte Count 2.84 X10^3/uL (0.83-4.51); Absolute Neutrophil Count 7.5 X10^3/uL (2.0-7.7); Basophil# 0.02 X10^3/uL; Basophil% 0.2 % (0-1); Eosinophil# 0.02 X10^3/uL; Eosinophils% 0.2 % (0-5); Hematocrit 38.5 % (37-47); Hemoglobin 12.5 g/dL (12.0-15.0); Lymphocyte # 2.84 X10^3/ul (0.83-4.51); Lymphocyte % 25.4 % (19-41); Mean Corp Hgb Conc 32.5 g/dL (32-36); Mean Corpuscular Hgb 29.9 pg (27.0-32.0); Mean Corpuscular Volume 92.1 fL (81-99); Mean Platelet Vol. 9.2 fl (6.2-12.0); Monocyte% 7.1 % (0-10); NRBC Flagged by Analyzer 0 % (0-5); Neutrophil # 7.46 X10^3/uL (2.7-7.7); Neutrophil % 66.7 % (47-70); Platelet Count 367 K/mm3 (150-450); RBC Distribution Width CV 12.7 % (11.6-14.6); RBC Distribution Width SD 43.2 fl (35.1-43.9); Red Blood Count 4.18 M/mm3 (4.2-5.4); White Blood Count 11.2 K/mm3 (4.4-11.0)
[2024-01-27 18:08] LABS: Color, Urine Yellow (Yellow); Glucose, Dipstick Normal (Normal); Ketone-Dipstick 5 mg/dl (Negative); Leukocyte Esterase-Dipstick 100 /ul (Negative); Nitrite-Dipstick Negative (Negative); Occult Blood-Urine 250 /ul (Negative); Protein-Dipstick 30 mg/dl (Negative); Urine Clarity Sl. Cloudy (Clear); Urine Urobilinogen 4 mg/dl (Normal)
[2024-01-27 18:13] LABS: Anion Gap 4 (5-15); BUN 10 mg/dL (7-18); BUN/Creat Ratio 12.7 RATIO (10-20); Calcium,Total 9.3 mg/dL (8.5-10.1); Chloride 105 mmol/L (98-107); Creatinine, Serum 0.79 mg/dL (0.55-1.02); EST Glomerular Filtration Rate 90 mL/min (>60); Est Glom Filt Rate - Afr Amer 108 mL/min (>60); Glucose 87 mg/dL (74-106); Potassium 3.8 mmol/L (3.5-5.1); Sodium Level 135 mmol/L (136-145)
[2024-01-27 18:22] LABS: Urine Bilirubin Dipstick 1 mg/dL (Negative)
[2024-01-27 18:23] VITALS: BP 123/74; O2SAT 96
[2024-01-27 18:24] LABS: Bacteria 2+ /hpf (None Seen); Mucous, Urine 2+ /hpf (<or=2+); Red Blood Cells-Urine 5-10 SEEN /hpf (0-5); Squamous Epithelial Cells - UA 0-5 SEEN /hpf (5-10); White Blood Cells 0-5 SEEN /hpf (0-5)
[2024-01-27 18:26] LABS: Internal QC Validated? YES +Cl - CLEAR BKGD; Pregnancy, Serum, hCG Quali. NEGATIVE Negative
[2024-01-27] MEDS: Azithromycin 250 MG Tablet 500 MG PO (19:53)
[2024-01-27 19:59] VITALS: BP 123/74; PULSE 92; RESP 16; TEMP 37.2; O2SAT 96
== END 2024-01-27 19:59 | disposition home or self-care (01) ==
PROVIDERS: Emergency Provider Emergency Medicine; Visit Provider Emergency Medicine
DX: J18.9 Pneumonia, unspecified organism (principal); R35.0 Frequency of micturition; Z88.0 Allergy status to penicillin; F17.210 Nicotine dependence, cigarettes, uncomplicated
CPT/HCPCS: 71046; 80048; 81001; 84703; 85025; 94640; 99283; A4216